=== PATIENT | male | born 1990 | race African-American/Black ===

== ENCOUNTER 2017-08-17 12:18 | Emergency (ER) | payer OTHER ==
[2017-08-17] MEDS ORDERED: NS 0.9% 1000 ML* 1,000 ML IV ONE (12:50)
[2017-08-17] MEDS ORDERED: Morphine VIAL* 4 MG/ML VIAL (1 ml vial) IV ONE (12:51)
[2017-08-17] MEDS ORDERED: Ondansetron INJ* 2 MG/ML VIAL IV ONE (12:51)
[2017-08-17 13:04] LABS: ABS Basophils 0 10^3/ul (0-0.2); ABS Eosinophils 0.1 10^3/ul (0-0.6); ABS Lymphocytes 1.3 10^3/ul (1.0-4.8); ABS Monocytes 0.4 10^3/ul (0-0.8); ABS Neutrophils 2.4 10^3/ul (1.5-7.7); ABS Nucleated RBC 0 10^3/ul; Eosinophil % 2.2 % (0-6); Hematocrit 39 % (42-52); Hemoglobin 13.3 g/dl (14.0-18.0); Lymphocyte % 31.7 % (25-47); Mean Corpuscular HGB Conc 34 g/dl (31-36); Mean Corpuscular Hemoglobin 30 pg (27-31); Mean Corpuscular Volume 88 fL (80-94); Mean Platelet Volume 8.1 um3 (7.4-10.4); Nucleated Red Blood Cells % 0.2; Platelet Count 223 10^3/ul (150-450); Red Cell Distribution Width 14 % (10.5-15); White Blood Count 4.2 10^3/ul (3.5-10.8)
[2017-08-17 13:12] LABS: INR 1.13 (0.77-1.02)
[2017-08-17 13:20] LABS: EGFR Non-African American 75.2 (>60)
--- NOTE | 2017-08-17 13:22 | RAD ---
INDICATION: Right lower quadrant pain. COMPARISON: There are no prior studies available for comparison. TECHNIQUE: A CT scan of the abdomen and pelvis was performed without intravenous and without oral contrast. Contiguous axial sections were obtained from the lung bases through the symphysis pubis. Images were reconstructed in the coronal and sagittal planes. FINDINGS: The lung bases are clear. No pleural effusion is present. The liver and spleen are within normal limits in size without significant focal abnormality on this noncontrast study. No calcified gallstones are seen. The pancreas appears to be within normal limits in size. The adrenal glands and kidneys are normal in size. No renal calculi or hydronephrosis is seen. The aorta is normal in caliber without significant calcific plaque. No significant enlarged retroperitoneal lymph nodes are seen. The stomach, small and large bowel appear nondistended. The appendix is not well visualized although no inflammatory changes are seen in the right lower quadrant. There are scattered diverticuli throughout the colon. There is no evidence for diverticulitis or colitis. No free intraperitoneal air or fluid is seen. No significant focal osseous abnormality is seen. IMPRESSION: LIMITED NONCONTRAST STUDY. NO ACUTE FINDING IS SEEN. THE APPENDIX IS NOT WELL VISUALIZED ALTHOUGH NO INFLAMMATORY CHANGES ARE SEEN IN THE RIGHT LOWER QUADRANT.
--- NOTE | 2017-08-17 13:55 | RAD ---
INDICATION: Right testicular pain. COMPARISON: There are no prior studies available for comparison. TECHNIQUE: Multiple real-time images of the testicles were obtained including color Doppler images and Doppler tracings. FINDINGS: The testicles are normal in size, shape and echogenicity. The right testicle measured 4.7 x 2.7 x 3.3 cm and the left testicle measured 4.7 x 2.8 x 3.2 cm. No intratesticular mass is seen. There is symmetric vascular flow within both testicles. The epididymides appear to be within normal limits. IMPRESSION: NEGATIVE EXAM.
[2017-08-17 16:41] LABS: Urine Appearance Clear; Urine Blood Negative (Negative); Urine Color Straw; Urine Ketones Negative (Negative); Urine Protein Negative (Negative); Urine Specific Gravity 1.008 (1.010-1.030); Urine Urobilinogen Negative (Negative)
--- NOTE | 2017-08-17 17:11 | ED ---
Abdominal Pain/Male - HPI Summary HPI Summary: Patient presents with one-week history of right lower quadrant pain. He reports this started a few hours after eating one day. He reports this as a sharp burning stabbing pain in the right lower quadrant that lasted about 20 minutes. He lay down to rest until past. He denies associated symptoms of fevers, chills, nausea, vomiting, diarrhea. This pain presented again the following day in the same fashion. He reports it's been getting progressively worse and that it feels like "needles" in the area when he has the pain strike. Additionally he's experienced a couple of episodes of dysuria along with pain into the testicular area on the right side. He denies scrotal or testicular swelling, penile drainage, prostate pain or swelling or fullness in the perineal area, flank pain and he denies recent sexual activity. He denies fever but reports chills which he typically gets right before an infection. He went to medical at [facility] and they were concerned about possible appendicitis and referred him here. He has no medical history other than herpes. No known allergies. He denies previous surgeries. Does not take any routine medication. Furthermore, he denies trauma to the area including assault by another person as well as new activities involving twisting, lifting, reaching that could've caused muscle strain or hernia. - History of Current Complaint Chief Complaint: EDAbdPain Stated Complaint: R/O APPENDIX Time Seen by Provider: 08/17/17 12:24 Hx Obtained From: Patient, Family/Link Assembler - 2 CO's Pain Intensity: 10 - Allergies/Home Medications Allergies/Adverse Reactions: Allergies Allergy/AdvReac Type Severity Reaction Status Date / Time No Known Allergies Allergy Verified 08/17/17 12:21 PMH/Surg Hx/FS Hx/Imm Hx Previously Healthy: Yes GI History: Denies: Hx Cirrhosis, Hx Crohn's Disease, Hx Diverticulosis, Hx Gall Bladder Disease, Hx Gastroesophageal Reflux Disease, Hx Hiatal Hernia, Hx Irritable Bowel, Hx Obstructive Bowel, Hx Ulcer History: Denies: Hx Kidney Infection, Hx Kidney Stones, Other Problems/Disorders Infectious Disease History: No Infectious Disease History: Denies: Traveled Outside the [place] in Last 30 Days - Family History Known Family History: Positive: None - Social History Occupation: Employed Part-time - "[employer]" in long-term Lives: Dormitory/Roommates - long-term Alcohol Use: None Hx Substance Use: No Substance Use Type: Reports: None Hx Tobacco Use: Yes - not currently Smoking Status (MU): Former Smoker Review of Systems Positive: Chills. Negative: Fever, Fatigue Eyes: Negative ENT: Negative Negative: Chest Pain Respiratory: Negative Negative: Shortness Of Breath Positive: Abdominal Pain. Negative: Vomiting, Diarrhea, Nausea Positive: see HPI Musculoskeletal: Negative Skin: Negative Neurological: Negative Psychological: Normal All Other Systems Reviewed And Are Negative: Yes Physical Exam Triage Information Reviewed: Yes Vital Signs On Initial Exam: Initial Vitals Temp Pulse Resp BP Pulse Ox 98.4 F 63 16 138/76 100 08/17/17 12:21 08/17/17 12:21 08/17/17 12:21 08/17/17 12:21 08/17/17 12:21 Vital Signs Reviewed: Yes Appearance: Positive: Well-Appearing, Well-Nourished, Pain Distress - mild to moderate Skin: Positive: Warm, Skin Color Reflects Adequate Perfusion, Dry Head/Face: Positive: Normal Head/Face Inspection Eyes: Positive: Normal, EOMI ENT: Positive: Normal ENT inspection, Hearing grossly normal, Pharynx normal - mucosa moist Neck: Positive: Supple Respiratory/Lung Sounds: Positive: Clear to Auscultation, Breath Sounds Present. Negative: Rales, Rhonchi, Wheezes Cardiovascular: Positive: Normal, RRR Abdomen Description: Positive: No Organomegaly, Soft, McBur[place]'s Point Tenderness - mild - no rebounding, Other: - Mild TTP over Rt side, RLQ and Rt inguinal region. Negative: CVA Tenderness (R), CVA Tenderness (L), Distended, Guarding, Hernia @ Bowel Sounds: Positive: Present Male Genital Exam: Positive: Normal Genitalia, Epididymal Tenderness - Rt, Other - testicles w/o masses - evenly hanging. Negative: Bleeding, Hernia Mass , Lesions, Scrotum Tenderness (R), Scrotum Tenderness (L), Testicular Tenderness (R), Testicular Tenderness (L), Urethral Discharge Musculoskeletal: Positive: Normal, Strength/ROM Intact Neurological: Positive: Normal, Sensory/Motor Intact, Alert, Oriented to Person Place, Time, CN Intact II-III Psychiatric: Positive: Normal Diagnostics - Vital Signs Vital Signs Temp Pulse Resp BP Pulse Ox 08/17/17 16:28 54 100 08/17/17 15:00 55 99 07/07/18 14:24 53 100 08/17/17 13:21 67 126/76 99 08/17/17 13:10 16 08/17/17 13:05 57 99 08/17/17 12:52 57 110/66 100 08/17/17 12:47 54 100 08/17/17 12:21 98.4 F 57 16 138/76 100 - Laboratory Lab Results: Lab Results 08/17/17 08/17/17 08/17/17 Range/Units 12:56 12:56 12:56 WBC 4.2 (3.5-10.8) 10^3/ul RBC 4.50 (4.00-5.40) 10^6/ul Hgb 13.3 L (14.0-18.0) g/dl Hct 39 L (42-52) % MCV 88 (80-94) fL MCH 30 (27-31) pg MCHC 34 (31-36) g/dl RDW 14 (10.5-15) % Plt Count 223 (150-450) 10^3/ul MPV 8.1 (7.4-10.4) um3 Neut % (Auto) 56.4 (38-83) % Lymph % (Auto) 31.7 (25-47) % [place] % (Auto) 8.7 H (0-7) % Eos % (Auto) 2.2 (0-6) % Baso % (Auto) 1.0 (0-2) % Absolute Neuts (auto) 2.4 (1.5-7.7) 10^3/ul Absolute Lymphs (auto) 1.3 (1.0-4.8) 10^3/ul Absolute Monos (auto) 0.4 (0-0.8) 10^3/ul Absolute Eos (auto) 0.1 (0-0.6) 10^3/ul Absolute Basos (auto) 0 (0-0.2) 10^3/ul Absolute Nucleated RBC 0 10^3/ul Nucleated RBC % 0.2 INR (Anticoag Therapy) (0.77-1.02) APTT (26.0-36.3) seconds Sodium 138 (135-145) mmol/L Potassium 4.3 (3.5-5.0) mmol/L Chloride 104 (101-111) mmol/L Carbon Dioxide 28 (22-32) mmol/L Anion Gap 6 (2-11) mmol/L BUN 10 (6-24) mg/dL Creatinine 1.15 (0.67-1.17) mg/dL Est GFR ( Amer) 91.0 (>60) Est GFR (Non-Af Amer) 75.2 (>60) BUN/Creatinine Ratio 8.7 (8-20) Glucose 96 (70-100) mg/dL Lactic Acid 0.9 (0.5-2.0) mmol/L Calcium 9.5 (8.6-10.3) mg/dL Magnesium 1.8 L (1.9-2.7) mg/dL Total Bilirubin 0.90 (0.2-1.0) mg/dL AST 27 (13-39) U/L ALT 30 (7-52) U/L Alkaline Phosphatase 57 (34-104) U/L C-Reactive Protein < 1.00 (<8.01) mg/L Total Protein 7.5 (6.4-8.9) g/dL Albumin 4.5 (3.2-5.2) g/dL Globulin 3.0 (2-4) g/dL Albumin/Globulin Ratio 1.5 (1-3) Lipase 33 (11.0-82.0) U/L Urine Color Urine Appearance Urine pH (5-9) Ur Specific [place] (1.010-1.030) Urine Protein (Negative) Urine Ketones (Negative) Urine Blood (Negative) Urine Nitrate (Negative) Urine Bilirubin (Negative) Urine Urobilinogen (Negative) Ur Leukocyte Esterase (Negative) Urine Glucose (Negative) 08/17/17 08/17/17 Range/Units 12:56 16:28 WBC (3.5-10.8) 10^3/ul RBC (4.00-5.40) 10^6/ul Hgb (14.0-18.0) g/dl Hct (42-52) % MCV (80-94) fL MCH (27-31) pg MCHC (31-36) g/dl RDW (10.5-15) % Plt Count (150-450) 10^3/ul MPV (7.4-10.4) um3 Neut % (Auto) (38-83) % Lymph % (Auto) (25-47) % [place] % (Auto) (0-7) % Eos % (Auto) (0-6) % Baso % (Auto) (0-2) % Absolute Neuts (auto) (1.5-7.7) 10^3/ul Absolute Lymphs (auto) (1.0-4.8) 10^3/ul Absolute Monos (auto) (0-0.8) 10^3/ul Absolute Eos (auto) (0-0.6) 10^3/ul Absolute Basos (auto) (0-0.2) 10^3/ul Absolute Nucleated RBC 10^3/ul Nucleated RBC % INR (Anticoag Therapy) 1.13 H (0.77-1.02) APTT 34.2 (26.0-36.3) seconds Sodium (135-145) mmol/L Potassium (3.5-5.0) mmol/L Chloride (101-111) mmol/L Carbon Dioxide (22-32) mmol/L Anion Gap (2-11) mmol/L BUN (6-24) mg/dL Creatinine (0.67-1.17) mg/dL Est GFR ( Amer) (>60) Est GFR (Non-Af Amer) (>60) BUN/Creatinine Ratio (8-20) Glucose (70-100) mg/dL Lactic Acid (0.5-2.0) mmol/L Calcium (8.6-10.3) mg/dL Magnesium (1.9-2.7) mg/dL Total Bilirubin (0.2-1.0) mg/dL AST (13-39) U/L ALT (7-52) U/L Alkaline Phosphatase (34-104) U/L C-Reactive Protein (<8.01) mg/L Total Protein (6.4-8.9) g/dL Albumin (3.2-5.2) g/dL Globulin (2-4) g/dL Albumin/Globulin Ratio (1-3) Lipase (11.0-82.0) U/L Urine Color Straw Urine Appearance Clear Urine pH 6.0 (5-9) Ur Specific [place] 1.008 L (1.010-1.030) Urine Protein Negative (Negative) Urine Ketones Negative (Negative) Urine Blood Negative (Negative) Urine Nitrate Negative (Negative) Urine Bilirubin Negative (Negative) Urine Urobilinogen Negative (Negative) Ur Leukocyte Esterase Negative (Negative) Urine Glucose Negative (Negative) Result Diagrams: 08/17/17 12:56 08/17/17 12:56 Lab Statement: Any lab studies that have been ordered have been reviewed, and results considered in the medical decision making process. Re-Evaluation - Re-Evaluation First Eval Change: Unchanged - pain did not improve w/ morphine 2 mg - pt did not want full dose as he was concerned about getting addicted which is why 2mg was initially given; will give toradol after reviewing all results Abdominal Pain Fem Course/Dx - Course Course Of Treatment: Patient presents with right lower quadrant pain 1 week. His symptoms are concerning for urinary tract stone, urinary tract infection, possible appendicitis although doubtful, possible hernia, or atypical diverticulitis. Labs are within normal limits including UA. We had initially hoped to collect urine after 2 hours of holding however this was incorrectly collected and given patient's urinary symptoms in the face of a normal CT and ultrasound, he will be treated empirically for gonorrhea and chlamydia, possibly causing pain along urinary tract/epididymis. He will additionally be treated with an NSAID and advised to try clear liquids over the next 2 days and follow-up with his medical staff on Saturday. If symptoms change in the meantime for the worse, he may return to the emergency department. Patient and CO's acknowledge and agree with plan. Pt was given a copy of his medical records and may have his CD of images when it's safe to do so. - Diagnoses Provider Diagnoses: RLQ abdominal pain Discharge - Sign-Out/Discharge Documenting (check all that apply): Discharge/Admit/Transfer - Discharge Plan Condition: Stable Disposition: HOME Prescriptions: DOXYcycline CAP(*) [DOXYcycline 100MG CAP(*)] 100 mg PO BID #20 cap Patient Education Materials: Abdominal Pain (ED), Epididymitis (ED) Forms: *Work Release Referrals: [facility], [Z.BUSINESS, APPLICATION, OTHER] - Additional Instructions: The definitive cause of your abdominal pain was not identified today however given your symptoms, it is suspected G may have have passed a kidney stone and/ or have epididymitis. Common causes of epididymitis are triggered by certain bacteria's which will be treated for today. He received 250 mg of ceftriaxone and will continue to complete the course of doxycycline 1 tab by mouth twice a day 10 days. Follow up with her medical staff to receive the remainder of the doxycycline. Additionally, you been prescribed ibuprofen 800 mg every 8 hours with food as needed for pain. If this makes her pain worse, stop taking and switch to acetaminophen. You may request these medications through medical staff. Is also advised to use rest in the [facility] and avoid work or physical activity until cleared by medical staff on Saturday. Make an appointment. *If in the meantime you develop fever, vomiting, diarrhea, bloody stools, pain with urination, inability to urinate, swelling of your testicles and/or flank pain, seek medical attention or return to the emergency department. - Billing Disposition and Condition Condition: STABLE Disposition: Home
[2017-08-17] MEDS ORDERED: cefTRIAXone VIAL(*) 1,000 MG VIAL IVPB ONE (17:26)
[2017-08-17] MEDS ORDERED: DOXYcycline CAP(*) 100 MG PO ONE (17:26)
[2017-08-17] MEDS ORDERED: Ketorolac INJ* 30 MG/ML 1 ML VIAL IV PUSH ONE (17:28)
[2017-08-17] MEDS ORDERED: cefTRIAXone(*) 1 GM ADVAN/BAG ONE (17:44)
[2017-08-17] MEDS ORDERED: cefTRIAXone VIAL(*) 250 MG in NS 0.9% 50 ML* 50 ML IVPB ONE (18:00)
[2017-08-17 18:29] VITALS: BP 126/74
== END 2017-08-17 18:28 | disposition home or self-care (01) ==
LOC: ED 12:18
DX: R10.31 Right lower quadrant pain (principal); Z87.891 Personal history of nicotine dependence; R30.0 Dysuria; Z79.01 Long term (current) use of anticoagulants; N50.811 Right testicular pain
CPT/HCPCS: 36415; 74176; 76870; 80053; 81003; 83605; 83690; 83735; 85025; 85610; 85730; 86140; 87040; 87491; 87591; 96374; 96375; 99283; A9270-GY; J0696; J1885; J2270; J2405